=== PATIENT | female | born 1935 | race Caucasian/White ===

== ENCOUNTER → 2024-03-31 | Outpatient (CLI) | payer BC, MEDICARE ==
--- NOTE | 2024-04-01 10:04 | PE ---
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 Images are reviewed on the computer in the coronal, axial, and sagittal planes. Reconstructed rotating images are created on independent workstation and reviewed on the computer. A non-contrast CT is performed in conjunction with the PET scan. Glucose level 85 mg/dL CT DLP: 440.17 mGycm, Automated exposure control for dose reduction was used. COMPARISON: CT None, PET/CT None, MRI: None FINDINGS: Mediastinal SUV mean is 1.7. Hepatic parenchyma SUV mean is 2.2. SKULL BASE AND NECK: * Small 2-3 mm lymph node in the right submental region max SUV 2.8 * Right neck lymph node just deep to the sternocleidomastoid muscle max SUV 2.7. * Intense uptake within the lip somewhat midline max SUV 11.3 measuring on PET imaging up to 2.3 cm in transverse dimension. CHEST, MEDIASTINUM, AND HILAR REGION: No suspicious radiotracer activity. ABDOMEN AND PELVIS: No suspicious radiotracer activity. MUSCULOSKELETAL STRUCTURES: Left medial knee cystic structure with suspected degeneration uptake around the knee joint max SUV 2. 9 Mild uptake around the right knee also present max SUV 3.[address]: * Coronary atherosclerosis. * Left simple appearing renal cysts. * Atherosclerosis of the arterial left ureter. * Colonic diverticulosis. IMPRESSION: 1. Limited FDG activity compatible with primary malignancy. Few right neck FDG avid lymph nodes whic h are nonenlarged. These are suspicious. 2. 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 Further evalua tion with MRI of the left knee could provide clarity. [facility], , 04/01/2024 10:01 AM
== END | disposition home or self-care (01) ==
LOC: RADPETMAIN 12:20
DX: C44.02 Squamous cell carcinoma of skin of lip (principal)
CPT/HCPCS: 78816; A9552